=== PATIENT | female | born 1930 | race American Indian/Alaskan Native ===

== ENCOUNTER 2017-12-16 00:08 | Inpatient (IN) | payer MEDICARE ==
[2017-12-16 01:37] LABS: Basophils % (Auto) 0.2 % (0.0-1.8); Eosinophils % (Auto) 0.3 % (0.0-4.3); Hematocrit 37.9 % (30.3-42.9); Hemoglobin 12.5 gm/dl (10.1-14.3); Lymphocytes # (Auto) 3.2 K/mm3 (1.2-5.4); Lymphocytes % (Auto) 45.6 % (13.4-35.0); Mean Corpuscular HGB Conc 33 % (30-34); Mean Corpuscular Hemoglobin 31 pg (28-32); Mean Corpuscular Volume 92 fl (79-97); Monocytes # (Auto) 0.4 K/mm3 (0.0-0.8); Monocytes % (Auto) 6.2 % (0.0-7.3); Platelet Count 299 K/mm3 (140-440); Red Cell Distribution Width 14.7 % (13.2-15.2)
[2017-12-16] MEDS ORDERED: D50W (25GM) Syringe IV ONE (01:47)
[2017-12-16 01:52] LABS: Albumin 4.2 g/dL (3.9-5); Calcium 9.6 mg/dL (8.4-10.2)
--- NOTE | 2017-12-16 04:36 | Cat Scan Report ---
FINAL REPORT EXAM: CT HEAD/BRAIN WO CON HISTORY: Weakness TECHNIQUE: Routine axial imaging was obtained of the brain without IV contrast. There are no previous studies available for comparison FINDINGS: There osja-df-pmiotbyf atrophy. There is generalized ventriculomegaly which is on a chronic basis. There is no evidence of acute stroke or hemorrhage. The ventricular system is remarkable for a cavum septum pellucidum and cavum vergae representing normal variants. There are no extra-axial fluid collections. The basal cisterns appear normal. The visualized sinuses are clear. The calvarium appears intact IMPRESSION: [id number] atrophy with generalized ventriculomegaly. No evidence of acute stroke or hemorrhage.
--- NOTE | 2017-12-16 04:49 | Emergency Department Report ---
HPI - General Chief Complaint: Altered Mental Status Time Seen by Provider: 12/16/17 02:35 - HPI HPI: This is an 87-year-old -[place] female presents to the emergency department by EMS from her ECF with the complaint of failure to thrive and possibly some altered mental status. However the patient does have a history of dementia. She also has a history of hypertension, previous DVT and a note says that she has a history of breast cancer. The patient herself is unsure why she was sent in and does not have any particular complaints. The triage notes say that the patient has apparently not been eating or drinking over the past 3 days. ED Past Medical Hx - Past Medical History Hx Hypertension: Yes Hx Deep Vein Thrombosis: Yes Hx Dementia: Yes - Social History Smoking Status: Never Smoker Substance Use Type: None - Medications Home Medications: Home Medications Medication Instructions Recorded Confirmed Last Taken Type Donepezil HCl 10 mg PO DAILY 12/16/17 12/16/17 Unknown History Furosemide [Lasix] 20 mg PO QDAY 12/16/17 12/16/17 Unknown History Nebivolol HCl [Bystolic] 10 mg PO DAILY 12/16/17 12/16/17 Unknown History Potassium Chloride 10 meq PO QDAY 12/16/17 12/16/17 Unknown History Quetiapine Fumarate [SEROquel XR] 50 mg PO QDAY 12/16/17 12/16/17 Unknown History Sertraline [Zoloft] 50 mg PO QDAY 12/16/17 12/16/17 Unknown History Simvastatin [Zocor TAB] 20 mg PO QHS 12/16/17 12/16/17 Unknown History Valsartan/Hydrochlorothiazide 1 each PO DAILY 12/16/17 12/16/17 Unknown History [Valsartan-Hctz 320-25 mg Tab] amLODIPine [Norvasc] 10 mg PO DAILY 12/16/17 12/16/17 Unknown History hydrALAZINE [Apresoline] 25 mg PO BID 12/16/17 12/16/17 Unknown History ED Review of Systems ROS: Stated complaint: GENERAL WEAKNESS Other details as noted in HPI Comment: Unobtainable due to pts medical conditions Physical Exam - Physical Exam Vital Signs: Vital Signs 12/16/17 12/16/17 12/16/17 00:16 00:27 00:34 Temperature 97.6 F 97.6 F Pulse Rate 50 L 50 L Respiratory 14 14 17 Rate Blood Pressure 133/65 Blood Pressure 133/65 [Left] O2 Sat by Pulse 99 99 Oximetry 12/16/17 12/16/17 12/16/17 01:19 01:30 01:46 Temperature 97.7 F Pulse Rate 52 L 50 L Respiratory 12 14 Rate Blood Pressure 146/57 Blood Pressure 146/57 [Left] O2 Sat by Pulse 96 100 92 Oximetry 12/16/17 12/16/17 12/16/17 02:00 02:16 02:30 Temperature Pulse Rate 52 L 53 L 53 L Respiratory 13 16 12 Rate Blood Pressure 146/57 98/65 98/65 Blood Pressure [Left] O2 Sat by Pulse 95 Oximetry 12/16/17 12/16/17 12/16/17 02:46 03:00 03:16 Temperature Pulse Rate 59 L 50 L 46 L Respiratory 19 11 L 11 L Rate Blood Pressure 98/65 98/65 98/65 Blood Pressure [Left] O2 Sat by Pulse Oximetry Physical Exam: GENERAL: Patient is elderly appearing and confused but otherwise resting comfortably. HENT: Normocephalic. Atraumatic. Patient has moist mucous membranes. EYES: Extraocular motions are intact. Pupils equal reactive to light bilaterally. NECK: Supple. Trachea is midline. CHEST/LUNGS: Clear to auscultation. There is no respiratory distress noted. HEART/CARDIOVASCULAR: Regular. There is no tachycardia. There is no murmur. ABDOMEN: Abdomen is soft, nontender. Patient has normal bowel sounds. There is no abdominal distention. SKIN: Skin is warm and dry. NEURO: Patient is awake. Oriented to person only but does follow some commands. No slurred speech. MUSCULOSKELETAL: There is no tenderness or deformity. There is no evidence of acute injury. ED Course Vital Signs 12/16/17 12/16/17 12/16/17 00:16 00:27 00:34 Temperature 97.6 F 97.6 F Pulse Rate 50 L 50 L Respiratory 14 14 17 Rate Blood Pressure 133/65 Blood Pressure 133/65 [Left] O2 Sat by Pulse 99 99 Oximetry 12/16/17 12/16/17 12/16/17 01:19 01:30 01:46 Temperature 97.7 F Pulse Rate 52 L 50 L Respiratory 12 14 Rate Blood Pressure 146/57 Blood Pressure 146/57 [Left] O2 Sat by Pulse 96 100 92 Oximetry 12/16/17 12/16/17 12/16/17 02:00 02:16 02:30 Temperature Pulse Rate 52 L 53 L 53 L Respiratory 13 16 12 Rate Blood Pressure 146/57 98/65 98/65 Blood Pressure [Left] O2 Sat by Pulse 95 Oximetry 12/16/17 12/16/17 12/16/17 02:46 03:00 03:16 Temperature Pulse Rate 59 L 50 L 46 L Respiratory 19 11 L 11 L Rate Blood Pressure 98/65 98/65 98/65 Blood Pressure [Left] O2 Sat by Pulse Oximetry ED Medical Decision Making - Lab Data Result diagrams: 12/16/17 01:12 12/16/17 13:50 - EKG Data -: EKG Interpreted by Me EKG shows normal: sinus rhythm, axis, intervals, QRS complexes (LVH), ST-T waves Rate: normal - EKG Data When compared to previous EKG there are: previous EKG unavailable Interpretation: LVH - Radiology Data Radiology results: report reviewed EXAM: US RENAL BILAT HISTORY: renal failure TECHNIQUE: Routine sonographic evaluation was obtained of the kidneys and bladder. FINDINGS: The right kidney measures 9.3 cm x 4.1 cm x 4.7 cm. The cortical thickness is 1.1 cm. There is increased echotexture of the renal cortex suggesting renal medical disease. There is no evidence of stones or hydronephrosis. The left kidney is normal in contour measuring 9.5 cm x 5.2 cm x 4.5 cm. The cortical thickness is 1.4 cm. The cortical echotexture is slightly increased. There is no evidence of shadowing stones or hydronephrosis. The bladder is unremarkable. IMPRESSION: No evidence of hydronephrosis or shadowing stones. Increased cortical echotexture both kidneys compatible with underlying renal medical disease. Transcribed By: RB Dictated By: FABY RIVERA MD Electronically Authenticated By: FABY RIVERA MD Signed Date/Time: 12/16/17 014 EXAM: CT HEAD/BRAIN WO CON HISTORY: Weakness TECHNIQUE: Routine axial imaging was obtained of the brain without IV contrast. There are no previous studies available for comparison FINDINGS: There ohgh-qh-ypcvyowb atrophy. There is generalized ventriculomegaly which is on a chronic basis. There is no evidence of acute stroke or hemorrhage. The ventricular system is remarkable for a cavum septum pellucidum and cavum vergae representing normal variants. There are no extra-axial fluid collections. The basal cisterns appear normal. The visualized sinuses are clear. The calvarium appears intact IMPRESSION: Kvbl-nb-gtuvhcum atrophy with generalized ventriculomegaly. No evidence of acute stroke or hemorrhage. Transcribed By: RB Dictated By: FABY RIVERA MD Electronically Authenticated By: FABY RIVERA MD Signed Date/Time: 12/16/17 0034 - Medical Decision Making The patient's labs show renal sufficiency with a creatinine of 2.8. Ultrasound does not show any signs of obstruction and this may be chronic kidney disease but there is no previous records showing any renal insufficiency and there are no previous labs for comparison. CT head did not show any bleed, shift, mass or an acute process. Vital signs stable except for some transient bradycardia. However the patient is not eating or drinking and there is concern for worsening malnutrition and potentially also could be the etiology of her renal insufficiency. For this reason the patient will be admitted to the hospital for further evaluation and treatment and will be presented to the a.. hospitalist. - Differential Diagnosis malnutrition, dehydration, dementia, CVA, TIA Critical Care Time: No Critical care attestation.: If time is entered above; I have spent that time in minutes in the direct care of this critically ill patient, excluding procedure time. ED Disposition Clinical Impression: Dehydration Malnutrition Qualifiers: Malnutrition type: unspecified type Qualified Code(s): E46 - Unspecified protein-calorie malnutrition Renal failure Qualifiers: Renal failure chronicity: unspecified chronicity Qualified Code(s): N19 - Unspecified kidney failure Hypertension Qualifiers: Hypertension type: essential hypertension Qualified Code(s): I10 - Essential ( primary) hypertension Disposition: OP ADMIT IP TO THIS HOSP Is pt being admited?: Yes Condition: Fair Time of Disposition: 06:25
--- NOTE | 2017-12-16 05:44 | Ultrasound Report ---
FINAL REPORT EXAM: US RENAL BILAT HISTORY: renal failure TECHNIQUE: Routine sonographic evaluation was obtained of the kidneys and bladder. FINDINGS: The right kidney measures 9.3 cm x 4.1 cm x 4.7 cm. The cortical thickness is 1.1 cm. There is increased echotexture of the renal cortex suggesting renal medical disease. There is no evidence of stones or hydronephrosis. The left kidney is normal in contour measuring 9.5 cm x 5.2 cm x 4.5 cm. The cortical thickness is 1.4 cm. The cortical echotexture is slightly increased. There is no evidence of shadowing stones or hydronephrosis. The bladder is unremarkable. IMPRESSION: No evidence of hydronephrosis or shadowing stones. Increased cortical echotexture both kidneys compatible with underlying renal medical disease.
[2017-12-16] MEDS ORDERED: NACL 0.9% 1000 ML 1,000 ML IV ONE (06:24)
[2017-12-16] MEDS ORDERED: TYLENOL PO PRN (06:36)
[2017-12-16] MEDS ORDERED: DULCOLAX PR PRN (06:36)
[2017-12-16] MEDS ORDERED: ZOFRAN IV PRN (06:36)
--- NOTE | 2017-12-16 06:39 | History and Physical Report ---
History of Present Illness Date of examination: 12/16/17 History of present illness: 87-year-old man with a history of hypertension, dementia was sent to the emergency room from [facility] because she has not been eating or drinking in the last 3 days. Review of system is unobtainable PAST MEDICAL HISTORY:hypertension, dementia PAST SURGICAL HISTORY: Unknown FAMILY HISTORY: Unknown SOCIAL HISTORY: Unknown Medications and Allergies Allergies Allergy/AdvReac Type Severity Reaction Status Date / Time No Known Allergies Allergy Verified 12/16/17 06:40 Home Medications Medication Instructions Recorded Confirmed Last Taken Type Donepezil HCl 10 mg PO DAILY 12/16/17 12/16/17 Unknown History Furosemide [Lasix] 20 mg PO QDAY 12/16/17 12/16/17 Unknown History Nebivolol HCl [Bystolic] 10 mg PO DAILY 12/16/17 12/16/17 Unknown History Potassium Chloride 10 meq PO QDAY 12/16/17 12/16/17 Unknown History Quetiapine Fumarate [SEROquel XR] 50 mg PO QDAY 12/16/17 12/16/17 Unknown History Sertraline [Zoloft] 50 mg PO QDAY 12/16/17 12/16/17 Unknown History Simvastatin [Zocor TAB] 20 mg PO QHS 12/16/17 12/16/17 Unknown History Valsartan/Hydrochlorothiazide 1 each PO DAILY 12/16/17 12/16/17 Unknown History [Valsartan-Hctz 320-25 mg Tab] amLODIPine [Norvasc] 10 mg PO DAILY 12/16/17 12/16/17 Unknown History hydrALAZINE [Apresoline] 25 mg PO BID 12/16/17 12/16/17 Unknown History Active Meds: Active Medications Sodium Chloride (Nacl 0.9% 1000 Ml) 1,000 mls @ 100 mls/hr IV ONCE ONE Stop: 12/16/17 16:23 Exam - Physical Exam Narrative exam: Gen. appearance: Patient lying in bed in no acute distress HEENT: Normocephalic/atraumatic, pupils equal round reactive to light, extra occular movement intact, no scleral icterus, no JVD or thyromegaly or nodule, neck is supple, mucous membrane dry, no erythema or exudate Heart: S1-S2, regular rate and rhythm Lungs: Clear to auscultation bilateral breathing comfortable Abdomen: Positive bowel sounds, nontender, nondistended, no organomegaly Extremities: No edema, cyanosis, clubbing Neuro::cranial nerves II-12 intact, speech, motor intact Skin: No rash, nodules, warm dry - Constitutional Vitals: Temp Pulse Resp BP Pulse Ox 97.7 F 51 L 12 122/44 100 12/16/17 01:30 12/16/17 04:00 12/16/17 04:00 12/16/17 04:00 12/16/17 04:00 Results - Labs CBC & Chem 7: 12/16/17 01:12 12/16/17 01:12 Labs: Abnormal lab results 12/16/17 12/16/17 12/16/17 Range/Units 01:12 01:12 01:39 Lymph % (Auto) 45.6 H (13.4-35.0) % Carbon Dioxide 18 L (22-30) mmol/L BUN 81 H (7-17) mg/dL Creatinine 2.8 H (0.7-1.2) mg/dL POC Glucose 67 L (70-105) ALT 5 L (7-56) units/L - Imaging and Cardiology CT Scan - head: report reviewed Assessment and Plan Renal ultrasound reviewed Assessment Acute renal failure Failure to thrive Hypertension Dementia Plan Admit to medicine Start IV fluid, hold diuretics, encourage oral intake Continue appropriate outpatient medications in 191
[2017-12-16 06:51] LABS: Bilirubin,Urine NEG (Negative); Blood,Urine NEG (Negative); Color,Urine Yellow (Yellow); Hyaline Casts,Urine 13 /LPF; Mucus,Urine FEW /HPF; Nitrite,Urine NEG (Negative); Protein,Urine <15 mg/dL mg/dL (Negative); Urobilinogen,Urine < 2.0 mg/dL (<2.0)
[2017-12-16 06:58] LABS: Amphetamine Screen,Urine PRESUMPTIVE NEGATIVE; Benzodiazepines Screen,Urine PRESUMPTIVE NEGATIVE; Cannabinoid Screen,Urine PRESUMPTIVE NEGATIVE; Cocaine Screen,Urine PRESUMPTIVE NEGATIVE; Methadone Screen,Urine PRESUMPTIVE NEGATIVE; Opiate Screen,Urine PRESUMPTIVE NEGATIVE
[2017-12-16] MEDS: ARICEPT PO SCH (10:00)
[2017-12-16] MEDS ORDERED: NON-FORMULARY (Nebivolol Hcl [Bystolic] 10 MG) PO SCH (10:00)
[2017-12-16] MEDS ORDERED: NON-FORMULARY (Quetiapine Fumarate [Seroquel Xr] 50 MG) PO SCH (10:00)
[2017-12-16] MEDS: TOPROL XL PO SCH (13:13)
[2017-12-16] MEDS: ZOLOFT PO SCH (13:14)
[2017-12-16] MEDS: NORVASC PO SCH (13:20)
[2017-12-16 14:28] LABS: Calcium 9.5 mg/dL (8.4-10.2)
[2017-12-16] MEDS: NACL 0.9% 1000 ML 1,000 ML IV SCH (15:55)
--- NOTE | 2017-12-16 22:24 | Event Note ---
Date: 12/16/17 Patient seen and examined, in no acute distress. Resting comfortably. Will await repeat labs, continue hydrating patient. she is more awake and tolerated some diet. if continues to tolerate diet can be discharged in am.
[2017-12-16] MEDS: SODIUM BICARBONATE PO SCH (23:16)
[2017-12-17 07:26] LABS: Basophils % (Auto) 0.4 % (0.0-1.8); Eosinophils % (Auto) 0.2 % (0.0-4.3); Hematocrit 37.9 % (30.3-42.9); Lymphocytes # (Auto) 2.1 K/mm3 (1.2-5.4); Lymphocytes % (Auto) 30.1 % (13.4-35.0); Mean Corpuscular HGB Conc 32 % (30-34); Mean Corpuscular Hemoglobin 29 pg (28-32); Mean Corpuscular Volume 91 fl (79-97); Monocytes # (Auto) 0.5 K/mm3 (0.0-0.8); Monocytes % (Auto) 7.2 % (0.0-7.3); Platelet Count 300 K/mm3 (140-440); Red Blood Count 4.15 M/mm3 (3.65-5.03); Red Cell Distribution Width 14.8 % (13.2-15.2)
[2017-12-17 08:04] LABS: Calcium 9.3 mg/dL (8.4-10.2)
[2017-12-17] MEDS: NORVASC PO SCH (09:15)
[2017-12-17] MEDS: ARICEPT PO SCH (09:15)
[2017-12-17] MEDS: SODIUM BICARBONATE PO SCH ×2 (09:15→22:30)
[2017-12-17] MEDS: TOPROL XL PO SCH (09:15)
[2017-12-17] MEDS: ZOLOFT PO SCH (09:15)
[2017-12-17] MEDS ORDERED: SODIUM BICARBONATE IV ONE ×2 (10:15→11:00)
[2017-12-17] MEDS ORDERED: PNEUMOVAX 23 IM ONE ×2 (12:00)
--- NOTE | 2017-12-17 16:45 | Progress Note ---
Assessment and Plan Assessment and plan: 87-year-old Female with a history of hypertension, dementia was sent to the emergency room from [facility] because she has not been eating or drinking in the last 3 days. Acute Kidney injury with likely underlying CKD * Secondary to Vasomotor Nephropathy * Gentle hydration Failure to thrive * Supportive care. Family at this time not agreeable for PEG Metabolic Acidosis * Give a dose of bicarb. Hypertension * Continue current medication Dementia * appears to be at baseline. DVT/GI prophylaxis Family updated. History Interval history: Patient seen and examined, improving and appears close to baseline. Hospitalist Physical - Physical exam Narrative exam: VITAL SIGNS: Reviewed. GENERAL: The patient appeared well nourished and normally developed. Vital signs as documented. HEAD: No signs of head trauma. EYES: Pupils are equal. Extraocular motions intact. EARS: Hearing grossly intact. MOUTH: Oropharynx is normal. NECK: No adenopathy, no JVD. CHEST: Chest with clear breath sounds bilaterally. No wheezes, rales, or rhonchi. CARDIAC: Regular rate and rhythm. S1 and S2, without murmurs, gallops, or rubs. VASCULAR: No Edema. Peripheral pulses normal and equal in all extremities. ABDOMEN: Soft, without detectable tenderness. No sign of distention. No rebound or guarding, and no masses palpated. Bowel Sounds normal. MUSCULOSKELETAL: Good range of motion of all major joints. Extremities without clubbing, cyanosis or edema. NEUROLOGIC EXAM: Awake, oriented to person only (appears to be his baseline). No focal sensory or strength deficits. Speech normal. Follows some commands. PSYCHIATRIC: Mood normal. SKIN: No rash or lesions. - Constitutional Vitals: Temp Pulse Resp BP Pulse Ox 98.2 F 52 L 18 139/57 98 12/17/17 11:14 12/17/17 11:25 12/17/17 11:14 12/17/17 11:14 12/17/17 11:14 Results - Labs CBC & Chem 7: 12/17/17 05:45 12/17/17 05:45 Labs: Laboratory Last Values WBC 7.1 K/mm3 (4.5-11.0) 12/17/17 05:45 RBC 4.15 M/mm3 (3.65-5.03) 12/17/17 05:45 Hgb 12.0 gm/dl (10.1-14.3) 12/17/17 05:45 Hct 37.9 % (30.3-42.9) 12/17/17 05:45 MCV 91 fl (79-97) 12/17/17 05:45 MCH 29 pg (28-32) 12/17/17 05:45 MCHC 32 % (30-34) 12/17/17 05:45 RDW 14.8 % (13.2-15.2) 12/17/17 05:45 Plt Count 300 K/mm3 (140-440) 12/17/17 05:45 Lymph % (Auto) 30.1 % (13.4-35.0) 12/17/17 05:45 Wharton % (Auto) 7.2 % (0.0-7.3) 12/17/17 05:45 Eos % (Auto) 0.2 % (0.0-4.3) 12/17/17 05:45 Baso % (Auto) 0.4 % (0.0-1.8) 12/17/17 05:45 Lymph # 2.1 K/mm3 (1.2-5.4) 12/17/17 05:45 Wharton # 0.5 K/mm3 (0.0-0.8) 12/17/17 05:45 Eos # 0.0 K/mm3 (0.0-0.4) 12/17/17 05:45 Baso # 0.0 K/mm3 (0.0-0.1) 12/17/17 05:45 Seg Neutrophils % 62.1 % (40.0-70.0) 12/17/17 05:45 Seg Neutrophils # 4.4 K/mm3 (1.8-7.7) 12/17/17 05:45 Sodium 144 mmol/L (137-145) 12/17/17 05:45 Potassium 4.4 mmol/L (3.6-5.0) 12/17/17 05:45 Chloride 104.4 mmol/L (98-107) 12/17/17 05:45 Carbon Dioxide 17 mmol/L (22-30) L 12/17/17 05:45 Anion Gap 27 mmol/L 12/17/17 05:45 BUN 70 mg/dL (7-17) H 12/17/17 05:45 Creatinine 1.6 mg/dL (0.7-1.2) H 12/17/17 05:45 Estimated GFR 37 ml/min 12/17/17 05:45 BUN/Creatinine Ratio 44 % 12/17/17 05:45 Glucose 73 mg/dL (65-100) 12/17/17 05:45 POC Glucose 101 (70-105) 12/17/17 12:04 Calcium 9.3 mg/dL (8.4-10.2) 12/17/17 05:45 Total Bilirubin 0.30 mg/dL (0.1-1.2) 12/16/17 01:12 AST 12 units/L (5-40) 12/16/17 01:12 ALT 5 units/L (7-56) L 12/16/17 01:12 Alkaline Phosphatase 92 units/L (35-129) 12/16/17 01:12 Total Protein 7.4 g/dL (6.3-8.2) 12/16/17 01:12 Albumin 4.2 g/dL (3.9-5) 12/16/17 01:12 Albumin/Globulin Ratio 1.3 % 12/16/17 01:12 TSH 0.896 mlU/mL (0.270-4.200) 12/16/17 01:12 Urine Color Yellow (Yellow) 12/16/17 06:20 Urine Turbidity Clear (Clear) 12/16/17 06:20 Urine pH 5.0 (5.0-7.0) 12/16/17 06:20 Ur Specific Huger 1.013 (1.003-1.030) 12/16/17 06:20 Urine Protein <15 mg/dl mg/dL (Negative) 12/16/17 06:20 Urine Glucose (UA) Neg mg/dL (Negative) 12/16/17 06:20 Urine Ketones Neg mg/dL (Negative) 12/16/17 06:20 Urine Blood Neg (Negative) 12/16/17 06:20 Urine Nitrite Neg (Negative) 12/16/17 06:20 Urine Bilirubin Neg (Negative) 12/16/17 06:20 Urine Urobilinogen < 2.0 mg/dL (<2.0) 12/16/17 06:20 Ur Leukocyte Esterase Neg (Negative) 12/16/17 06:20 Urine WBC (Auto) 1.0 /HPF (0.0-6.0) 12/16/17 06:20 Urine RBC (Auto) 1.0 /HPF (0.0-6.0) 12/16/17 06:20 U Epithel Cells (Auto) 1.0 /HPF (0-13.0) 12/16/17 06:20 Hyaline Casts 13 /LPF 12/16/17 06:20 Urine Mucus Few /HPF 12/16/17 06:20 Urine Opiates Screen Presumptive negative 12/16/17 06:20 Urine Methadone Screen Presumptive negative 12/16/17 06:20 Ur Barbiturates Screen Presumptive negative 12/16/17 06:20 Ur Phencyclidine Scrn Presumptive negative 12/16/17 06:20 Ur Amphetamines Screen Presumptive negative 12/16/17 06:20 U Benzodiazepines Scrn Presumptive negative 12/16/17 06:20 Urine Cocaine Screen Presumptive negative 12/16/17 06:20 U Marijuana (THC) Screen Presumptive negative 12/16/17 06:20 Drugs of Abuse Note Disclamer 12/16/17 06:20 Plasma/Serum Alcohol < 0.01 gm% (0-0.07) 12/16/17 01:12
[2017-12-17] MEDS: NACL 0.9% 1000 ML 1,000 ML IV SCH (17:25)
[2017-12-18] MEDS: NACL 0.9% 1000 ML 1,000 ML IV SCH (07:29)
[2017-12-18] MEDS: TOPROL XL PO SCH ×2 (09:37→09:53)
[2017-12-18] MEDS: ARICEPT PO SCH ×2 (09:38→09:54)
[2017-12-18] MEDS: SODIUM BICARBONATE PO SCH ×2 (09:38→09:53)
[2017-12-18] MEDS: NORVASC PO SCH ×2 (09:38→09:54)
[2017-12-18] MEDS: ZOLOFT PO SCH (09:38)
--- NOTE | 2017-12-18 10:33 | Discharge Summary ---
Providers - Providers Date of Admission: 12/16/17 06:36 Attending physician: YARITZA TOMLINSON MD 12/17/17 09:00 Consult to Wound/ET Nurse [CONS] Routine Reason For Exam: wound eval Primary care physician: VITALIY GOMEZ Hospitalization Condition: Stable Disposition: DC/[place]-03 [facility] Time spent for discharge: 35 mins Exam - Physical Exam Narrative exam: VITAL SIGNS: Reviewed. GENERAL: The patient appeared well nourished and normally developed. Vital signs as documented. HEAD: No signs of head trauma. EYES: Pupils are equal. Extraocular motions intact. EARS: Hearing grossly intact. MOUTH: Oropharynx is normal. NECK: No adenopathy, no JVD. CHEST: Chest with clear breath sounds bilaterally. No wheezes, rales, or rhonchi. CARDIAC: Regular rate and rhythm. S1 and S2, without murmurs, gallops, or rubs. VASCULAR: No Edema. Peripheral pulses normal and equal in all extremities. ABDOMEN: Soft, without detectable tenderness. No sign of distention. No rebound or guarding, and no masses palpated. Bowel Sounds normal. MUSCULOSKELETAL: Good range of motion of all major joints. Extremities without clubbing, cyanosis or edema. NEUROLOGIC EXAM: Awake, oriented to person only (appears to be his baseline). No focal sensory or strength deficits. Speech normal. Follows some commands. PSYCHIATRIC: Mood normal. SKIN: No rash or lesions. - Constitutional Vitals: Temp Pulse Resp BP Pulse Ox 97.5 F L 46 L 18 173/65 100 12/18/17 08:05 12/18/17 08:05 12/18/17 08:05 12/18/17 08:05 12/18/17 08:05 Plan Activity: advance as tolerated, fall precautions, other (assist with meals) Diet: low fat Special Instructions: record daily BP diary Follow up with: VITALIY GOMEZ MD [Primary Care Provider] - 3-5 Days
[2017-12-18] MEDS ORDERED: APRESOLINE IV ONE (11:00)
[2017-12-18 12:20] VITALS: BP 149/57
== END 2017-12-18 13:50 | disposition home or self-care (01) | DRG 683 ==
LOC: ED 00:08 → 4A 06:36 → 3A 13:41
PROVIDERS: ADMIT Internal Medicine; ATTEND Internal Medicine
PROC: 3E0234Z Introduction of Serum, Toxoid and Vaccine into Muscle, Percutaneous Approach (ICD-10-PCS; principal; 2017-12-17)
DX: N17.0 Acute kidney failure with tubular necrosis (principal); E87.2 Acidosis; E46 Unspecified protein-calorie malnutrition; N18.9 Chronic kidney disease, unspecified; I12.9 Hypertensive chronic kidney disease with stage 1 through stage 4 chronic kidney disease, or unspecified chronic kidney disease; R62.7 Adult failure to thrive; F03.90 Unspecified dementia, unspecified severity, without behavioral disturbance, psychotic disturbance, mood disturbance, and anxiety; Z23 Encounter for immunization; Z79.899 Other long term (current) drug therapy; Z86.718 Personal history of other venous thrombosis and embolism; Z79.01 Long term (current) use of anticoagulants; Z68.24 Body mass index [BMI] 24.0-24.9, adult
CPT/HCPCS: 36415; 70450; 76770; 80048; 80053; 80307; 80320; 81001; 82962; 84443; 85025; 90732; 93005; 93010; 96374; G0480; J0360; J7030

== ENCOUNTER 2018-01-27 14:04 | Emergency (ER) | payer MEDICARE ==
[2018-01-27] MEDS ORDERED: GEODON IM ONE (14:36)
[2018-01-27] MEDS ORDERED: NACL 0.9% 1000 ML 1,000 ML IV ONE (14:37)
[2018-01-27] MEDS ORDERED: WATER FOR INJ (PF) 10 ML ONE (14:43)
--- NOTE | 2018-01-27 14:43 | Emergency Department Report ---
ED General Adult HPI - General Chief complaint: Urogenital-Female Stated complaint: Altered Mental Status Time Seen by Provider: 01/27/18 14:30 Source: EMS Mode of arrival: Stretcher Limitations: Altered Mental Status - History of Present Illness Initial comments: Patient is a 87 years old female with history of advanced dementia and hypertension. Frequent admission to the hospital for dehydration and failure to thrive. Patient brought by EMS for combative behavior with the long term staff and possible UTI. Patient is not communicating. - Related Data Home Medications Medication Instructions Recorded Confirmed Last Taken Donepezil HCl 10 mg PO DAILY 12/16/17 01/27/18 Unknown Furosemide [Lasix TAB] 20 mg PO QDAY 12/16/17 01/27/18 Unknown Potassium Chloride 10 meq PO QDAY 12/16/17 01/27/18 Unknown Quetiapine Fumarate [SEROquel XR] 50 mg PO QDAY 12/16/17 01/27/18 Unknown Sertraline [Zoloft] 50 mg PO QDAY 12/16/17 01/27/18 Unknown Simvastatin [Zocor TAB] 20 mg PO QHS 12/16/17 01/27/18 Unknown Tylenol /Codeine # 3 tab 1 tab PO Q6HR PRN 01/02/18 01/27/18 Unknown Atenolol 25 mg PO DAILY 01/27/18 01/27/18 Unknown Imodium 2 mg PO BID 01/27/18 01/27/18 Unknown Previous Rx's Medication Instructions Recorded Last Taken Type hydrALAZINE [Apresoline TAB] 25 mg PO Q8HR #90 tablet 01/03/18 Unknown Rx Levofloxacin [Levaquin TAB] 500 mg PO QDAY #6 tablet 01/27/18 Unknown Rx Allergies Allergy/AdvReac Type Severity Reaction Status Date / Time No Known Allergies Allergy Verified 12/16/17 06:40 ED Review of Systems ROS: Stated complaint: Altered Mental Status Other details as noted in HPI Comment: Unobtainable due to pts medical conditions ED Past Medical Hx - Past Medical History Hx Hypertension: Yes Hx Deep Vein Thrombosis: Yes Hx Dementia: Yes - Social History Smoking Status: Never Smoker Substance Use Type: None - Medications Home Medications: Home Medications Medication Instructions Recorded Confirmed Last Taken Type Donepezil HCl 10 mg PO DAILY 12/16/17 01/27/18 Unknown History Furosemide [Lasix TAB] 20 mg PO QDAY 12/16/17 01/27/18 Unknown History Potassium Chloride 10 meq PO QDAY 12/16/17 01/27/18 Unknown History Quetiapine Fumarate [SEROquel XR] 50 mg PO QDAY 12/16/17 01/27/18 Unknown History Sertraline [Zoloft] 50 mg PO QDAY 12/16/17 01/27/18 Unknown History Simvastatin [Zocor TAB] 20 mg PO QHS 12/16/17 01/27/18 Unknown History Tylenol /Codeine # 3 tab 1 tab PO Q6HR PRN 01/02/18 01/27/18 Unknown History hydrALAZINE [Apresoline TAB] 25 mg PO Q8HR #90 tablet 01/03/18 01/27/18 Unknown Rx Atenolol 25 mg PO DAILY 01/27/18 01/27/18 Unknown History Imodium 2 mg PO BID 01/27/18 01/27/18 Unknown History Levofloxacin [Levaquin TAB] 500 mg PO QDAY #6 tablet 01/27/18 Unknown Rx ED Physical Exam - General Limitations: Altered Mental Status General appearance: alert, other (agitated and combative.) - Head Head exam: Present: atraumatic, normocephalic, normal inspection - ENT ENT exam: Present: mucous membranes dry - Neck Neck exam: Present: normal inspection, full ROM. Absent: tenderness, meningismus, lymphadenopathy - Respiratory Respiratory exam: Present: normal lung sounds bilaterally. Absent: respiratory distress, wheezes, rales, chest wall tenderness, accessory muscle use, decreased breath sounds, prolonged expiratory - Cardiovascular Cardiovascular Exam: Present: regular rate, normal rhythm, normal heart sounds - GI/Abdominal GI/Abdominal exam: Present: soft, normal bowel sounds. Absent: distended, tenderness, guarding, rebound, rigid, organomegaly, mass, bruit, pulsatile mass , hernia - Extremities Exam Extremities exam: Present: normal inspection, full ROM, normal capillary refill - Back Exam Back exam: Present: normal inspection, full ROM. Absent: tenderness, CVA tenderness (R), CVA tenderness (L) - Neurological Exam Neurological exam: Present: alert, oriented X3, CN II-XII intact, normal gait - Skin Skin exam: Present: warm, intact, normal color ED Course Vital Signs 01/27/18 01/27/18 01/27/18 14:18 17:04 18:23 Temperature 98.1 F Pulse Rate 69 65 60 Respiratory 18 16 16 Rate Blood Pressure 141/51 154/65 154/57 [Left] O2 Sat by Pulse 97 95 94 Oximetry 01/27/18 18:26 Temperature Pulse Rate 60 Respiratory 16 Rate Blood Pressure 154/57 [Left] O2 Sat by Pulse 94 Oximetry - Reevaluation(s) Reevaluation #1: 01/27/18 19:36 Patient is awake and alert. She is no longer combative. Patient is taking by mouth with no difficulty. Patient will be discharged back to her long term. ED Medical Decision Making - Lab Data Result diagrams: 01/27/18 16:56 01/27/18 16:56 Critical care attestation.: If time is entered above; I have spent that time in minutes in the direct care of this critically ill patient, excluding procedure time. ED Disposition Clinical Impression: UTI (urinary tract infection), Aggressive behavior Disposition: DC-01 TO HOME OR SELFCARE Is pt being admited?: No Condition: Stable Instructions: Urinary Tract Infection in Women (ED) Prescriptions: Levofloxacin [Levaquin TAB] 500 mg PO QDAY #6 tablet Referrals: PRIMARY CARE, [Primary Care Provider] - 3-5 Days
[2018-01-27] MEDS ORDERED: WATER FOR INJ (PF) IJ ONE (15:00)
[2018-01-27] MEDS ORDERED: WATER FOR INJ (PF) IV ONE (15:00)
[2018-01-27] MEDS ORDERED: ATIVAN IM ONE (15:43)
[2018-01-27 16:52] LABS: Bacteria,Urine 1+ /HPF (Negative); Bilirubin,Urine NEG (Negative); Blood,Urine NEG (Negative); Color,Urine Amber (Yellow); Mucus,Urine FEW /HPF
[2018-01-27 17:16] LABS: Basophils # (Auto) 0.1 K/mm3 (0.0-0.1); Eosinophils % (Auto) 0.2 % (0.0-4.3); Hematocrit 37.5 % (30.3-42.9); Hemoglobin 11.9 gm/dl (10.1-14.3); Lymphocytes # (Auto) 2.7 K/mm3 (1.2-5.4); Lymphocytes % (Auto) 30.5 % (13.4-35.0); Mean Corpuscular HGB Conc 32 % (30-34); Mean Corpuscular Hemoglobin 30 pg (28-32); Mean Corpuscular Volume 96 fl (79-97); Monocytes # (Auto) 0.7 K/mm3 (0.0-0.8); Monocytes % (Auto) 8.1 % (0.0-7.3); Platelet Count 321 K/mm3 (140-440); Red Cell Distribution Width 16.5 % (13.2-15.2)
[2018-01-27 17:32] LABS: Calcium 9.9 mg/dL (8.4-10.2)
[2018-01-27] MEDS: LEVAQUIN 500MG/100ML 500 MG/100 ML BAG IV ONE ×2 (17:40→18:08)
[2018-01-27 17:45] LABS: Alanine Aminotransferase 7 units/L (7-56); Albumin 4.1 g/dL (3.9-5); Bilirubin,Direct < 0.2 mg/dL (0-0.2)
[2018-01-27] MEDS ORDERED: LEVAQUIN ONE (18:01)
[2018-01-27] MEDS ORDERED: FLAGYL PO ONE (18:08)
[2018-01-27 23:43] VITALS: BP 116/59
== END 2018-01-28 01:03 | disposition home or self-care (01) ==
LOC: ED 14:04
DX: N39.0 Urinary tract infection, site not specified (principal); I10 Essential (primary) hypertension; E86.0 Dehydration; Z86.718 Personal history of other venous thrombosis and embolism
CPT/HCPCS: 36415; 80048; 80074; 81001; 85025; 96360; 96372; 99283; J2060; J3486; J7030; J1956